=== PATIENT | male | born 1995 | race Caucasian/White ===

== ENCOUNTER 2021-04-18 17:57 | Emergency (ER) | payer SELFPAY ==
[~2021-04-18] VITALS: Ht 185.4 cm; Wt 68.0 kg
--- NOTE | 2021-04-18 18:08 | NUR ---
Xray at bedside.
[2021-04-18] MEDS ORDERED: IBUPROFEN 600 MG TABLET PO ONE (18:15)
[2021-04-18] MEDS ORDERED: CLOM50CA2 PO (18:19)
[2021-04-18] MEDS ORDERED: IBUPROFEN 600 MG TABLET ONE (18:23)
--- NOTE | 2021-04-18 18:38 | NUR ---
Dr [email or web address], medical screening exam in progress
--- NOTE | 2021-04-18 18:51 | NUR ---
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 Dr Tobar just examined the patient. Patient's [email or web address].
[2021-04-18] MEDS ORDERED: BACITRACIN ZINC OINT 15 GM TUBE TOP ONE (19:00)
[2021-04-18] MEDS ORDERED: BACITRACIN ZINC OINT 15 GM TUBE ONE (19:11)
--- NOTE | 2021-04-18 19:34 | NUR ---
Patient discharged to home in stable condition with father taking patient home. Written and verbal after care instructions given. Patient verbalizes understanding of instructions. Stressed follow up or return to ER for worsening s/s.
[2021-04-18 19:35] VITALS: BP 128/88
== END 2021-04-18 19:35 | disposition home or self-care (01) ==
LOC: ER 18:04
DX: S82.65XA Nondisplaced fracture of lateral malleolus of left fibula, initial encounter for closed fracture (principal); S63.501A Unspecified sprain of right wrist, initial encounter; S92.152A Displaced avulsion fracture (chip fracture) of left talus, initial encounter for closed fracture; V28.4XXA Motorcycle driver injured in noncollision transport accident in traffic accident, initial encounter; Y92.410 Unspecified street and highway as the place of occurrence of the external cause; S90.812A Abrasion, left foot, initial encounter; S90.512A Abrasion, left ankle, initial encounter; S80.812A Abrasion, left lower leg, initial encounter; F32.A Depression, unspecified; Z79.899 Other long term (current) drug therapy; Z88.0 Allergy status to penicillin; F41.9 Anxiety disorder, unspecified
CPT/HCPCS: 73110; 73590; 73610; A4663